=== PATIENT | female | born 1950 | race Asian ===

== ENCOUNTER 2018-11-04 10:14 | Emergency (ER) | payer MEDICARE, OTHER ==
[2018-11-04] VITALS (7 sets, daily range): BP systolic 90–116; BP diastolic 58–67
[~2018-11-04] VITALS: Ht 157.5 cm; Wt 46.7 kg
--- NOTE | 2018-11-04 10:51 | Diagnostic Imaging Report ---
Indication: Chest pain Comparison: None A single view chest radiograph was obtained. Findings: No definite infiltrate or pulmonary vascular congestion identified. The heart is mildly enlarged. The aorta is minimally enlarged consistent with atherosclerotic vascular disease. The bones are osteopenic. Impression: No acute disease
[2018-11-04 11:02] LABS: BASOPHILS % (AUTO) 0.7 % (0.0-2.0); EOSINOPHILS % (AUTO) 0.3 % (0.0-3.0); HEMATOCRIT 37.5 % (37.0-47.0); HEMOGLOBIN 12.5 G/DL (12.0-16.0); LYMPHOCYTES % (AUTO) 19.2 % (20.0-45.0); MEAN CORPUSCULAR VOLUME 100 FL (80-99); MONOCYTES % (AUTO) 2.2 % (1.0-10.0); NEUTROPHILS % (AUTO) 77.6 % (45.0-75.0); PLATELET COUNT 243 K/UL (150-450); RED BLOOD COUNT 3.73 M/UL (4.20-5.40); RED CELL DISTRIBUTION WIDTH 10.9 % (11.6-14.8); WHITE BLOOD COUNT 11.3 K/UL (4.8-10.8)
[2018-11-04 11:32] LABS: ALANINE AMINOTRANSFERASE 41 U/L (12-78); ALBUMIN 4.1 G/DL (3.4-5.0); ALBUMIN/GLOBULIN RATIO 1.5 (1.0-2.7); ALKALINE PHOSPHATASE 69 U/L (46-116); ANION GAP 20 mmol/L (5-15); ASPARTATE AMINO TRANSFERASE 278 U/L (15-37); BILIRUBIN,TOTAL 0.5 MG/DL (0.2-1.0); BLOOD UREA NITROGEN 11 mg/dL (7-18); CALCIUM 8.3 MG/DL (8.5-10.1); CARBON DIOXIDE 19 MMOL/L (21-32); CHLORIDE 100 MMOL/L (98-107); CKMB 6.3 NG/ML (0.0-3.6); CREATINE KINASE 206 U/L (26-308); CREATININE 0.5 MG/DL (0.55-1.30); SODIUM 138 MMOL/L (136-145)
[2018-11-04 11:33] LABS: POTASSIUM 2.3 MMOL/L (3.5-5.1)
[2018-11-04 12:09] LABS: APPEARANCE,URINE CLEAR; BILIRUBIN, URINE NEGATIVE (NEGATIVE); COLOR,URINE PALE YELLOW; GLUCOSE, URINE (UA) 3+ (NEGATIVE); KETONES,URINE 3+ (NEGATIVE); LEUKOCYTE ESTERASE ,URINE NEGATIVE (NEGATIVE); NITRITE,URINE NEGATIVE (NEGATIVE); PH,URINE 5 (4.5-8.0); PROTEIN,URINE NEGATIVE (NEGATIVE); UROBILINOGEN,URINE NORMAL MG/DL (0.0-1.0)
--- NOTE | 2018-11-04 13:32 | Emergency Room Report ---
History of Present Illness General Chief Complaint: Nausea, Vomiting, and Diarrhea Source: Patient Present Illness HPI This patient is brought in by EMS. The patient states that yesterday she was drinking a lot of tequila with her friend whom she had not seen in a long time. She states that this was a special occasion. She denies that she drinks regularly. She states she has no medical problems. She states that yesterday she had drank a large amount of tequila and then went to bed. She states that she woke up sweaty and nauseated and short of breath. She also had recurrent episodes of vomiting in route to the emergency department. She denies recent illness. She denies cough or congestion. Denies fever chills. She denies abdominal pain. She denies headache or neck pain. She has no other complaints. Allergies: Coded Allergies: No Known Allergies (Unverified , 11/04/18) Patient History Past Medical History: none, see triage record Social History: Denies: smoking, alcohol use, drug use Now: No Reviewed Nursing Documentation: PMH: Agreed; PSxH: Agreed Nursing Documentation-PMH Past Medical History: No Stated History Review of Systems All Other Systems: negative except mentioned in HPI Physical Exam Vital Signs Date Time Temp Pulse Resp B/P (MAP) Pulse Ox O2 Delivery O2 Flow Rate FiO2 11/04/18 10:12 138 18 98/54 (69) 95 Room Air 11/04/18 11:00 91.7 Sp02 EP Interpretation: reviewed, normal General Appearance: no apparent distress, alert, GCS 15, non-toxic Head: normocephalic, atraumatic Eyes: bilateral eye normal inspection, bilateral eye PERRL ENT: hearing grossly normal, normal pharynx, no angioedema, normal voice Neck: full range of motion, supple/symm/no masses Respiratory: chest non-tender, lungs clear, normal breath sounds, no respiratory distress, no retraction, no accessory muscle use, speaking full sentences Cardiovascular #1: regular rate, rhythm, no edema Gastrointestinal: normal bowel sounds, non tender, soft, non-distended, no guarding, no rebound Rectal: deferred Musculoskeletal: back normal, normal range of motion, non-tender Neurologic: alert, responsive, motor strength/tone normal, sensory intact, speech normal Psychiatric: judgement/insight normal, memory normal, mood/affect normal, no suicidal/homicidal ideation Skin: no rash, normal color Medical Decision Making Diagnostic Impression: Primary Impression: Hypoglycemia Additional Impressions: Alcohol poisoning Hypokalemia Atrial fibrillation ER Course This patient initially presented vomiting and lethargic. She was found to have hypoglycemia with the fingerstick blood sugar of 47. She was given D50 and a meal and had complete resolution of her lethargy. She had no further vomiting. She was given aggressive IV fluids. She is also found to be in atrial fibrillation with a rapid ventricular response with a rate in the 130s. She has no history of atrial fibrillation. She was given IV fluids and oral potassium chloride and towards the end of her ED course she converted into normal sinus rhythm. I suspect the patient was dehydrated with associated alcohol effects related to hypoglycemia and not eating. This is also likely the etiology for her atrial fibrillation. Given the patient's age, hypoglycemia and hypokalemia and new atrial fibrillation I felt that this patient should be admitted to telemetry for further observation and monitoring. The patient's insurance company requested her transfer. At the time of transfer the patient was stable and significantly improved from her initial arrival in the emergency department. Laboratory Tests Test 11/04/18 10:30 11/04/18 12:02 White Blood Count 11.3 K/UL (4.8-10.8) H Red Blood Count 3.73 M/UL (4.20-5.40) L Hemoglobin 12.5 G/DL (12.0-16.0) Hematocrit 37.5 % (37.0-47.0) Mean Corpuscular Volume 100 FL (80-99) H Mean Corpuscular Hemoglobin 33.5 PG (27.0-31.0) H Mean Corpuscular Hemoglobin Concent 33.4 G/DL (32.0-36.0) Red Cell Distribution Width 10.9 % (11.6-14.8) L Platelet Count 243 K/UL (150-450) Mean Platelet Volume 6.9 FL (6.5-10.1) Neutrophils (%) (Auto) 77.6 % (45.0-75.0) H Lymphocytes (%) (Auto) 19.2 % (20.0-45.0) L Monocytes (%) (Auto) 2.2 % (1.0-10.0) Eosinophils (%) (Auto) 0.3 % (0.0-3.0) Basophils (%) (Auto) 0.7 % (0.0-2.0) Sodium Level 138 MMOL/L (136-145) Potassium Level 2.3 MMOL/L (3.5-5.1) *L Chloride Level 100 MMOL/L (98-107) Carbon Dioxide Level 19 MMOL/L (21-32) L Anion Gap 20 mmol/L (5-15) H Blood Urea Nitrogen 11 mg/dL (7-18) Creatinine 0.5 MG/DL (0.55-1.30) L Estimate Glomerular Filtration Rate > 60 mL/min (>60) Glucose Level 45 MG/DL (74-106) L Calcium Level 8.3 MG/DL (8.5-10.1) L Total Bilirubin 0.5 MG/DL (0.2-1.0) Aspartate Amino Transferase (AST) 278 U/L (15-37) H Alanine Aminotransferase (ALT) 41 U/L (12-78) Alkaline Phosphatase 69 U/L (46-116) Total Creatine Kinase 206 U/L (26-308) Creatine Kinase MB 6.3 NG/ML (0.0-3.6) H Creatine Kinase MB Relative Index 3.0 Troponin I 0.000 ng/mL (0.000-0.056) Total Protein 6.9 G/DL (6.4-8.2) Albumin 4.1 G/DL (3.4-5.0) Globulin 2.8 g/dL Albumin/Globulin Ratio 1.5 (1.0-2.7) Lipase 172 U/L (73-393) Thyroid Stimulating Hormone (TSH) 2.433 uiU/mL (0.358-3.740) Free Thyroxine 1.14 NG/DL (0.76-1.46) Free Triiodothyronine 2.5 pg/mL (2.3-4.2) Serum Alcohol 53 mg/dL Urine Color Pale yellow Urine Appearance Clear Urine pH 5 (4.5-8.0) Urine Specific [place] 1.015 (1.005-1.035) Urine Protein Negative (NEGATIVE) Urine Glucose (UA) 3+ (NEGATIVE) H Urine Ketones 3+ (NEGATIVE) H Urine Blood 2+ (NEGATIVE) H Urine Nitrite Negative (NEGATIVE) Urine Bilirubin Negative (NEGATIVE) Urine Urobilinogen Normal MG/DL (0.0-1.0) Urine Leukocyte Esterase Negative (NEGATIVE) Urine RBC 2-4 /HPF (0 - 2) H Urine WBC 0 /HPF (0 - 2) Urine Squamous Epithelial Cells Few /LPF (NONE/OCC) Urine Bacteria None /HPF (NONE) EKG Diagnostic Results Rate: tachycardiac Rhythm: other - A.Fib w/ RVR ST Segments: no acute changes PA Scribe Text REPEAT EKG: NSR, rate 80's Rhythm Strip Diag. Results EP Interpretation: yes Rate: 130's Rhythm: other - A.fib Chest X-Ray Diagnostic Results Chest X-Ray Diagnostic Results : Chest X-Ray Ordered: Yes # of Views/Limited/Complete: 1 View Indication: Shortness of Breath EP Interpretation: Yes Interpretation: no consolidation, no effusion, no pneumothorax, no acute cardiopulmonary disease Impression: No acute disease Electronically Signed by: Pat Kc DO Last Vital Signs Date Time Temp Pulse Resp B/P (MAP) Pulse Ox O2 Delivery O2 Flow Rate FiO2 11/04/18 13:18 96.7 84 12 101/59 99 Room Air Status: improved Disposition: XFER SHT-TRM HOSP Condition: Serious Referrals: NON PHYSICIAN (PCP) Pat Kc DO Nov 04, 2018 13:32
[2018-11-04] MEDS ORDERED: NKM (13:46)
== END 2018-11-04 17:43 | disposition short-term general hospital (02) ==
LOC: EDBD 10:14 → EMR 12:58
DX: T51.91XA Toxic effect of unspecified alcohol, accidental (unintentional), initial encounter (principal); E87.6 Hypokalemia; I48.91 Unspecified atrial fibrillation; E16.2 Hypoglycemia, unspecified; R06.02 Shortness of breath; Y92.9 Unspecified place or not applicable
CPT/HCPCS: 36415; 71045; 80053; 81003; 82550; 82553; 82962; 83690; 84439; 84443; 84481; 84484; 85025; 93005; 96361; 96374; 96375; 99284; G0480; J2405; 80329; J8499